=== PATIENT | female | born 1995 | race Caucasian/White ===

== ENCOUNTER 2016-05-23 21:26 | Emergency (ER) | payer BC, MEDICAID ==
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
[2016-05-24 01:20] VITALS: BP 120/70
== END 2016-05-24 01:20 | disposition home or self-care (01) ==
LOC: ER 21:26
DX: J02.9 Acute pharyngitis, unspecified (principal); R06.02 Shortness of breath; X02.1XXA Exposure to smoke in controlled fire in building or structure, initial encounter; Y92.009 Unspecified place in unspecified non-institutional (private) residence as the place of occurrence of the external cause
CPT/HCPCS: 36415; 71010; 82375; 99283